=== PATIENT | female | born 1985 | race Caucasian/White ===

== ENCOUNTER 2018-03-26 02:45 | Emergency (ER) | payer MEDICARE, OTHER ==
[~2018-03-26] VITALS: Ht 157.5 cm; Wt 62.6 kg
--- NOTE | 2018-03-26 03:20 | NUR ---
Patient wlaked into ER c/o SI due to family issue. Patient plan is to jump infront of traffic
[2018-03-26 03:37] LABS: BASOPHILS % (AUTO) 0.6 % (0.0-2.0); EOSINOPHILS # (AUTO) 0.1 K/uL (0.0-0.7); EOSINOPHILS % (AUTO) 1.2 % (0.0-7.0); HEMATOCRIT 37.6 % (31.2-41.9); HEMOGLOBIN 12.9 g/dL (10.9-14.3); LYMPHOCYTES # (AUTO) 2.4 K/uL (20.0-40.0); LYMPHOCYTES % (AUTO) 35.1 % (20.5-51.5); MEAN CORPUSCULAR HEMOGLOBIN 31.8 uug (24.7-32.8); MEAN CORPUSCULAR HGB CONC 34 g/dL (32.3-35.6); MEAN CORPUSCULAR VOLUME 92.9 fL (75.5-95.3); MONOCYTES # (AUTO) 0.4 K/uL (2.0-10.0); MONOCYTES % (AUTO) 6.5 % (0.0-11.0); NEUTROPHILS # (AUTO) 3.8 K/uL (1.8-8.9); NEUTROPHILS % (AUTO) 56.6 % (38.5-71.5); PLATELET COUNT (AUTO) 283 K/uL (179-408); RED BLOOD CELL COUNT(AUTO) 4.05 MIL/uL (3.63-4.92); WHITE BLOOD COUNT (AUTO) 6.8 K/uL (3.8-11.8)
[2018-03-26 03:38] LABS: *BILIRUBIN,URIN NEGATIVE (NEGATIVE); *BLOOD, URINE NEGATIVE (NEGATIVE); *CLARITY,URINE CLEAR (CLEAR); *COLOR,URINE YELLOW (YELLOW); *KETONES,URINE NEGATIVE (NEGATIVE); *PROTEIN,URINE NEGATIVE (NEGATIVE); *UROBILINOGEN,URINE 0.2 E.U./dl (NORMAL); LEUKOCYTE ESTERASE ,URINE NEGATIVE (NEGATIVE); NITRITE, URINE NEGATIVE (NEGATIVE); UGLUCOSE NEGATIVE (NEGATIVE)
[2018-03-26 03:44] LABS: BACTERIA,URINE NONE SEEN /HPF (NONE SEEN); RBC,URINE NONE SEEN /HPF (0-3); SQUAMOUS EPITHELIAL CELL,UR FEW /HPF (NONE SEEN); WBC,URINE 0-3 /HPF (0-3)
[2018-03-26 03:52] LABS: *AMPHETAMINE, URINE NEGATIVE (NEGATIVE); *BARBITURATE, URINE NEGATIVE (NEGATIVE); *CANNABINOID, URINE NEGATIVE (NEGATIVE); *COCCAINE, URINE NEGATIVE (NEGATIVE); *OPIATE, URINE NEGATIVE (NEGATIVE); *PHENCYCLIDINE SCREEN,URINE NEGATIVE (NEGATIVE)
[2018-03-26 03:53] LABS: ALANINE AMINOTRANSFERASE 28 U/L (14-59); ALKALINE PHOSPHATASE 59 U/L (50-136); ASPARTATE AMINOTRANSFERASE 13 U/L (15-37); BILIRUBIN,DIRECT 0.1 mg/dL (0.0-0.2); BILIRUBIN,TOTAL 0.3 mg/dL (0.2-1.0); CARBON DIOXIDE 24 mmol/L (21-32); CHLORIDE 102 mmol/L (98-107); GLUCOSE 89 mg/dL (74-106); POTASSIUM 3.6 mmol/L (3.5-5.1); UREA NITROGEN, BLOOD 19 mg/dL (7-18)
[2018-03-26] MEDS ORDERED: ACETAMINOPHEN ES 500 MG TABLET ONE (03:53)
[2018-03-26] MEDS ORDERED: ACETAMINOPHEN ES 500 MG TABLET PO ONE (04:00)
[2018-03-26] MEDS ORDERED: CLON1TAB PO (04:01)
[2018-03-26] MEDS ORDERED: MIDO2.5T PO (04:02)
[2018-03-26] MEDS ORDERED: QUET25TA PO (04:02)
[2018-03-26 04:10] LABS: ETHANOL < 3 MG/DL (0-0)
[2018-03-26] MEDS ORDERED: CLONAZEPAM 1 MG TABLET ONE (04:42)
[2018-03-26] MEDS ORDERED: CLONAZEPAM 0.5 MG TABLET PO ONE (04:45)
--- NOTE | 2018-03-26 04:45 | NUR ---
Patient requesting klonopin for anxiety. Orders recieved and carry out.
--- NOTE | 2018-03-26 06:00 | NUR ---
Patient sleeping with no distress noted
--- NOTE | 2018-03-26 07:10 | NUR ---
called [facility] for psych eval.
--- NOTE | 2018-03-26 08:07 | NUR ---
pt awake now, [facility] tray provided for pt.
--- NOTE | 2018-03-26 08:43 | NUR ---
[facility] mariscal at bedside to evaluate the pt.
--- NOTE | 2018-03-26 10:03 | NUR ---
melania from [facility] called and said the pt case is being reviewed at this time. [phone]
--- NOTE | 2018-03-26 10:34 | NUR ---
horace called back from [facility] for bed. pt requesting to wait for [facility]. if not [facility].
--- NOTE | 2018-03-26 11:10 | NUR ---
called back william talked to [facility]. no bed available at this time. still work on it.
--- NOTE | 2018-03-26 11:15 | NUR ---
called [facility] requesting the bed again, bed still available, earl will call back with info
--- NOTE | 2018-03-26 11:30 | NUR ---
horace from [facility] accepted the pt. pt going to [facility], accepting md is dr. henderson, nurse to nurse report number is [phone].
--- NOTE | 2018-03-26 11:41 | NUR ---
called [facility] to transfer the pt. trip number [id number], eta 90 minutes
--- NOTE | 2018-03-26 12:10 | NUR ---
hospital lunch tray provided for pt.
--- NOTE | 2018-03-26 12:10 | NUR ---
gave report to indio garciafort yates
--- NOTE | 2018-03-26 14:23 | NUR ---
tigist at bedside to transfer the pt to [facility]. pt tranfered in stable condition. all the pt belongigns and the original hold with the rest of the pt summary report sent with tigist cho.
== END 2018-03-26 14:38 | disposition short-term general hospital (02) ==
LOC: ER 02:47
DX: F32.9 Major depressive disorder, single episode, unspecified (principal); F41.9 Anxiety disorder, unspecified; Z88.8 Allergy status to other drugs, medicaments and biological substances; Z79.899 Other long term (current) drug therapy
CPT/HCPCS: 36415; 80048; 80076; 80307; 81001; 84703; 85025; 99284; A4663; A9150; G0480

== ENCOUNTER 2025-07-01 17:55 | Emergency (ER) | payer MEDICARE, OTHER ==
[~2025-07-01] VITALS: Ht 157.5 cm; Wt 54.4 kg
[~2025-07-01 17:55] MED LIST: CLON1TAB PO; MIDO2.5T PO; QUET25TA PO
[2025-07-01] MEDS ORDERED: ALPR1TAB7 PO (18:42)
[2025-07-01] MEDS ORDERED: TRAZ-257 PO (18:42)
[2025-07-01 18:47] VITALS: TEMP 98.4; O2SAT 96
== END 2025-07-01 18:49 | disposition home or self-care (01) ==
LOC: ER 18:00
DX: G47.00 Insomnia, unspecified (principal); F41.9 Anxiety disorder, unspecified; Z88.7 Allergy status to serum and vaccine; F43.10 Post-traumatic stress disorder, unspecified
CPT/HCPCS: A4606; A4663